=== PATIENT | female | born 1960 | race American Indian/Alaskan Native ===

== ENCOUNTER 2017-07-30 05:32 | Inpatient (IN) | payer BC, OTHER ==
[2017-07-30 06:30] LABS: Basophils % (Auto) 0.2 % (0.0-1.8); Eosinophils # (Auto) 0.1 K/mm3 (0.0-0.4); Eosinophils % (Auto) 0.4 % (0.0-4.3); Hematocrit 46.6 % (30.3-42.9); Lymphocytes # (Auto) 3.3 K/mm3 (1.2-5.4); Lymphocytes % (Auto) 27.5 % (13.4-35.0); Mean Corpuscular HGB Conc 34 % (30-34); Mean Corpuscular Hemoglobin 32 pg (28-32); Mean Corpuscular Volume 93 fl (79-97); Monocytes # (Auto) 1.4 K/mm3 (0.0-0.8); Monocytes % (Auto) 11.3 % (0.0-7.3); Platelet Count 362 K/mm3 (140-440); Red Blood Count 5.04 M/mm3 (3.65-5.03); Red Cell Distribution Width 13.3 % (13.2-15.2)
[2017-07-30 07:01] LABS: Albumin 4.5 g/dL (3.9-5); Calcium 9.3 mg/dL (8.4-10.2)
[2017-07-30] MEDS ORDERED: ZOFRAN IV ONE ×2 (07:05→10:05)
[2017-07-30] MEDS ORDERED: NACL 0.9% 1000 ML 1,000 ML IV ONE ×2 (07:05→08:14)
[2017-07-30] MEDS ORDERED: TORADOL IV ONE (07:20)
[2017-07-30] MEDS ORDERED: NACL ONE (07:45)
--- NOTE | 2017-07-30 08:07 | Emergency Department Report ---
ED Abdominal Pain HPI - General Chief Complaint: Abdominal Pain Stated Complaint: ABD PAIN Time Seen by Provider: 07/30/17 07:13 Source: patient Mode of arrival: Ambulatory Limitations: No Limitations - History of Present Illness Initial Comments: 57 yo female with a past medical history hypertension and previous hysterectomy presents to hospital with continued nausea and vomiting after eating a smoothie 3 days ago. Patient has intermittent lower abdominal cramps. Pain is mild to moderate, worse palpation, no specific alleviating factors. She denies fever, hematemesis, diarrhea, melena, hematochezia, recent travel, or known sick contacts. Patient's been trying to drink Gatorade with tolerating very little food intake. - Related Data Home Medications Medication Instructions Recorded Confirmed Last Taken Adalimumab [Humira Pen] Q2W 07/30/17 07/25/17 HCTZ 25 mg PO DAILY 07/30/17 07/30/17 Unknown Allergies Allergy/AdvReac Type Severity Reaction Status Date / Time No Known Allergies Allergy Verified 07/30/17 07:46 ED Review of Systems ROS: Stated complaint: ABD PAIN Other details as noted in HPI Comment: All other systems reviewed and negative Other: Constitutional: No fevers chills Eyes: No eye pain visual changes ENT: No ear pain or throat pain Neck: Denies pain Respiratory: Denies cough wheezing shortness of breath Cardiovascular: Denies chest pain, palpitations, syncope GI: As per HPI : Denies dysuria Musculoskeletal: Denies back pain, joint swelling Skin: Denies rash, lesions, erythema Neurologic: Denies headache, numbness, weakness Psychiatric: Denies suicidal ideation, hallucinations ED Past Medical Hx - Past Medical History Hx Hypertension: Yes - Surgical History Additional Surgical History: Hysterectomy - Social History Smoking Status: Current Every Day Smoker Substance Use Type: None - Medications Home Medications: Home Medications Medication Instructions Recorded Confirmed Last Taken Type Adalimumab [Humira Pen] Q2W 07/30/17 07/25/17 History HCTZ 25 mg PO DAILY 07/30/17 07/30/17 Unknown History ED Physical Exam - General Limitations: No Limitations - Other Other exam information: General: No limitations, patient is alert in no acute distress Head exam: Atraumatic, normocephalic Eyes exam: Normal appearance, pupils equal reactive to light, extraocular movements intact ENT: Moist mucous membrane, normal oropharynx Neck exam: Normal inspection, full range of motion, no meningismus nontender Respiratory exam: Clear to auscultation bilateral, no wheezes, rales, crackles Cardiovascular: Normal rate and rhythm, normal heart sounds Abdomen: Soft, nondistended, generalized lower abd tenderness. with normal bowel sounds, no rebound, or guarding Extremity: Full range of motion normal inspection no deformity Back: Normal Inspection, full range of motion, no tenderness Neurologic: Alert, oriented x3, cranial nerves intact, no motor or sensory deficit Psychiatric: normal affect, normal mood Skin: Warm, dry, intact ED Course Vital Signs 07/30/17 07/30/17 07/30/17 05:47 08:14 11:07 Temperature 98.9 F 97.8 F Pulse Rate 108 H 87 Respiratory 16 20 16 Rate Blood Pressure 124/89 Blood Pressure 143/82 [Left] O2 Sat by Pulse 98 99 Oximetry 07/30/17 11:59 Temperature Pulse Rate Respiratory 14 Rate Blood Pressure Blood Pressure [Left] O2 Sat by Pulse 99 Oximetry - Reevaluation(s) Reevaluation #1: 07/30/17 10:06 Morphine, Zofran, additional IV fluids ordered. Pending NG tube insertion - Consultations Consultation #1: 07/30/17 10:00 case d/w Dr Barker/surgery. Will evaluate pt for admission ED Medical Decision Making - Lab Data Result diagrams: 07/30/17 06:11 07/30/17 06:11 Lab Results 07/30/17 07/30/17 Range/Units 06:11 06:11 WBC 12.1 H (4.5-11.0) K/mm3 RBC 5.04 H (3.65-5.03) M/mm3 Hgb 16.0 H (10.1-14.3) gm/dl Hct 46.6 H (30.3-42.9) % MCV 93 (79-97) fl MCH 32 (28-32) pg MCHC 34 (30-34) % RDW 13.3 (13.2-15.2) % Plt Count 362 (140-440) K/mm3 Lymph % (Auto) 27.5 (13.4-35.0) % [place] % (Auto) 11.3 H (0.0-7.3) % Eos % (Auto) 0.4 (0.0-4.3) % Baso % (Auto) 0.2 (0.0-1.8) % Lymph # 3.3 (1.2-5.4) K/mm3 [place] # 1.4 H (0.0-0.8) K/mm3 Eos # 0.1 (0.0-0.4) K/mm3 Baso # 0.0 (0.0-0.1) K/mm3 Seg Neutrophils % 60.6 (40.0-70.0) % Seg Neutrophils # 7.3 (1.8-7.7) K/mm3 Sodium 131 L (137-145) mmol/L Potassium 3.6 (3.6-5.0) mmol/L Chloride 85.4 L (98-107) mmol/L Carbon Dioxide 26 (22-30) mmol/L Anion Gap 23 mmol/L BUN 37 H (7-17) mg/dL Creatinine 1.0 (0.7-1.2) mg/dL Estimated GFR 57 ml/min BUN/Creatinine Ratio 37 % Glucose 149 H (65-100) mg/dL Calcium 9.3 (8.4-10.2) mg/dL Total Bilirubin 0.60 (0.1-1.2) mg/dL AST 23 (5-40) units/L ALT 24 (7-56) units/L Alkaline Phosphatase 74 (35-129) units/L Total Protein 7.8 (6.3-8.2) g/dL Albumin 4.5 (3.9-5) g/dL Albumin/Globulin Ratio 1.4 % Lipase 20 (13-60) units/L - Radiology Data Radiology results: report reviewed Read by radiologist. CT abdomen and pelvis IV contrast: Incomplete small bowel obstruction. Obstruction probably from adhesions - Medical Decision Making Plan to admit patient to the hospital for partial SBO Surgery consultation Patient treated with Zofran, Toradol, and normal saline in the ED NG tube placed in the ED - Differential Diagnosis obstruction, gastritis, enteritis, food poisoning Critical Care Time: No Critical care attestation.: If time is entered above; I have spent that time in minutes in the direct care of this critically ill patient, excluding procedure time. ED Disposition Clinical Impression: Partial small bowel obstruction, Dehydration Disposition: OP ADMIT IP TO THIS HOSP Is pt being admited?: Yes Condition: Stable Time of Disposition: 10:00 (Dr Barker/ebony)
--- NOTE | 2017-07-30 09:33 | Cat Scan Report ---
CT scan of abdomen and pelvis with IV contrast: History: Nausea and vomiting. P.o. intolerance. Lower abdominal pain. Findings: Normal lung bases. No pleural pericardial effusion. Normal liver spleen pancreas gallbladder. Normal adrenals and kidney parenchyma and bladder. Minimal free intraperitoneal fluid. No intraperitoneal air. No evidence of adenopathy. Atherosclerotic abdominal aorta without aneurysm. Markedly distended loops of small bowel without wall thickening. Fluid levels within distended small bowel. No distention of colon. Colon appears collapsed. The site of obstruction appears to be a right lower quadrant there few loops of ileum appear collapsed. Impression: Incomplete small bowel obstruction. Obstruction appears to be probably from adhesions.
[2017-07-30] MEDS ORDERED: MORPHINE IV ONE (10:05)
[2017-07-30] MEDS ORDERED: LIDOCAINE VISCOUS 2% PO ONE (10:05)
--- NOTE | 2017-07-30 13:15 | Consultation ---
History of Present Illness Consult date: 07/30/17 Reason for consult: other (SBO) Requesting physician: NANCI HAMMOND Chief complaint: abdominal pain - History of present illness History of present illness: Patient is a 57-year-old fairly healthy female who presents with acute onset of abdominal pain, nausea, vomiting since this past Tuesday which would be about 4 days ago. Patient initially thought this was food poisoning. However, as things are not getting better, she decided to come in for evaluation. She was unable to get into her primary care's office. Denies any blood in her vomit. Had a very small bowel movement this morning. Has not passed gas since then. Since the nasogastric tube is been placed in the emergency room, her abdominal pain is much better. She now has only a pressure sensation in her abdomen. Nausea is also better. She's never had anything like this before. Denies any fevers or chills at home. Past History Past Medical History: hypertension, other (rheumatoid arthritis) Past Surgical History: hysterectomy (vaginal) Social history: smoking (1 pack per day), alcohol abuse (occasional), other ( works for [employer] in the [email or web address] denies: IV drug use Family history: no significant family history Medications and Allergies Allergies Allergy/AdvReac Type Severity Reaction Status Date / Time No Known Allergies Allergy Verified 07/30/17 07:46 Home Medications Medication Instructions Recorded Confirmed Last Taken Type Adalimumab [Humira Pen] Q2W 07/30/17 07/25/17 History HCTZ 25 mg PO DAILY 07/30/17 07/30/17 Unknown History Review of Systems - Constitutional no fever, no chills, no sweats, no night sweats - EENT Ears, nose, mouth and throat: other (dry mouth), no nasal congestion - Cardiovascular no chest pain, no rapid/irregular heart beat - Respiratory no cough, no shortness of breath - Gastrointestinal abdominal pain, nausea, vomiting, dyspepsia/bloating, other (feels pressure in the abdomen), no diarrhea, no constipation, no hematemesis, no coffee ground emesis, no BRBPR, no melena, no hematochezia - Genitourinary Genitourinary: no dysuria - Muskuloskeletal no low back pain - Integumentary no rash - Hematologic/Lymphatic easy bleeding Exam Vital Signs Temp Pulse Resp BP Pulse Ox 98.9 F 108 H 16 124/89 98 07/30/17 05:47 07/30/17 05:47 07/30/17 05:47 07/30/17 05:47 07/30/17 05:47 - General physical appearance Positive: well developed, well nourished, no distress, no pain - Eyes Positive: normal occular movement - ENT Positive: other (very dry oral mucosa) - Neck Positive: trachea midline - Respiratory Positive: normal expansion, normal respiratory effort, clear to auscultation - Cardiovascular Rhythm: regular - Abdomen Abdomen: Present: soft, bowel sounds hypoactive (no high-pitched bowel sounds), distended (mild). Absent: tender, guarding, rigid, surgical scars - Genitourinary Female Genitourinary: deferred - Integumentary no rash - Neurologic Neurologic: alert and oriented to time, place and person, motor strength and sensation are grossly intact - Psychiatric Psychiatric: appropriate mood/affect, intact judgment & insight, memory intact, cooperative - Additional Findings Able to sit up easily in bed Results - Labs 07/30/17 06:11 07/30/17 06:11 Abnormal lab results 07/30/17 07/30/17 Range/Units 06:11 06:11 WBC 12.1 H (4.5-11.0) K/mm3 RBC 5.04 H (3.65-5.03) M/mm3 Hgb 16.0 H (10.1-14.3) gm/dl Hct 46.6 H (30.3-42.9) % [place] % (Auto) 11.3 H (0.0-7.3) % [place] # 1.4 H (0.0-0.8) K/mm3 Sodium 131 L (137-145) mmol/L Chloride 85.4 L (98-107) mmol/L BUN 37 H (7-17) mg/dL Glucose 149 H (65-100) mg/dL Diabetes panel 07/30/17 Range/Units 06:11 Sodium 131 L (137-145) mmol/L Potassium 3.6 (3.6-5.0) mmol/L Chloride 85.4 L (98-107) mmol/L Carbon Dioxide 26 (22-30) mmol/L BUN 37 H (7-17) mg/dL Creatinine 1.0 (0.7-1.2) mg/dL Glucose 149 H (65-100) mg/dL Calcium 9.3 (8.4-10.2) mg/dL AST 23 (5-40) units/L ALT 24 (7-56) units/L Alkaline Phosphatase 74 (35-129) units/L Total Protein 7.8 (6.3-8.2) g/dL Albumin 4.5 (3.9-5) g/dL Calcium panel 07/30/17 Range/Units 06:11 Calcium 9.3 (8.4-10.2) mg/dL Albumin 4.5 (3.9-5) g/dL Pituitary panel 07/30/17 Range/Units 06:11 Sodium 131 L (137-145) mmol/L Potassium 3.6 (3.6-5.0) mmol/L Chloride 85.4 L (98-107) mmol/L Carbon Dioxide 26 (22-30) mmol/L BUN 37 H (7-17) mg/dL Creatinine 1.0 (0.7-1.2) mg/dL Glucose 149 H (65-100) mg/dL Calcium 9.3 (8.4-10.2) mg/dL Adrenal panel 07/30/17 Range/Units 06:11 Sodium 131 L (137-145) mmol/L Potassium 3.6 (3.6-5.0) mmol/L Chloride 85.4 L (98-107) mmol/L Carbon Dioxide 26 (22-30) mmol/L BUN 37 H (7-17) mg/dL Creatinine 1.0 (0.7-1.2) mg/dL Glucose 149 H (65-100) mg/dL Calcium 9.3 (8.4-10.2) mg/dL Total Bilirubin 0.60 (0.1-1.2) mg/dL AST 23 (5-40) units/L ALT 24 (7-56) units/L Alkaline Phosphatase 74 (35-129) units/L Total Protein 7.8 (6.3-8.2) g/dL Albumin 4.5 (3.9-5) g/dL - Imaging CT scan - abdomen: report reviewed, image reviewed Assessment and Plan - Patient Problems (1) SBO (small bowel obstruction) Onset Date: ~07/26/17 Current Visit: Yes Status: Acute Plan to address problem: Patient appears clinically stable and improved by report since NG tube has been placed. Abdomen is completely benign. Vitals are normal. We'll start with conservative management of the bowel obstruction. On CT, I believe there is a segment of distal small bowel that is decompressed. It is difficult to see the exact transition point. However, as she is feeling better and stable, we will resuscitate her and follow her for the next 24 to 48 hours to see if she is able to resolve this without surgery. I did explain to her that if her status should change, that if she becomes ill, then we may have to consider surgery. She understood and accepted that. Time=45min (2) Dehydration Current Visit: Yes Status: Acute Plan to address problem: Patient is very dehydrated by clinical exam and by labs. I will order fluid boluses as well as a continuous IV rate. Labs will be repeated in the morning.
[2017-07-30] MEDS ORDERED: MORPHINE IV PRN (13:28)
[2017-07-30] MEDS: NS/KCL 20MEQ 20 MEQ/1,000 ML BAG IV SCH ×2 (14:02→21:01)
[2017-07-30] MEDS ORDERED: NACL 0.9% 1000 ML 2,000 ML IV ONE (14:29)
[2017-07-30] MEDS: MORPHINE IV PRN ×2 (17:15→23:32)
[2017-07-30] MEDS: ZOFRAN IV PRN ×2 (18:56→23:32)
[2017-07-31] MEDS: NS/KCL 20MEQ 20 MEQ/1,000 ML BAG IV SCH ×3 (03:03→18:53)
[2017-07-31 06:07] LABS: Bilirubin,Urine NEG (Negative); Blood,Urine SM (Negative); Color,Urine Yellow (Yellow); Hyaline Casts,Urine 2 /LPF; Mucus,Urine 2+ /HPF; Urobilinogen,Urine < 2.0 mg/dL (<2.0)
[2017-07-31 07:52] LABS: Basophils % (Auto) 0.2 % (0.0-1.8); Eosinophils % (Auto) 0.1 % (0.0-4.3); Hematocrit 39.6 % (30.3-42.9); Hemoglobin 13.7 gm/dl (10.1-14.3); Lymphocytes # (Auto) 1.3 K/mm3 (1.2-5.4); Lymphocytes % (Auto) 14.4 % (13.4-35.0); Mean Corpuscular HGB Conc 34 % (30-34); Mean Corpuscular Hemoglobin 32 pg (28-32); Mean Corpuscular Volume 93 fl (79-97); Monocytes # (Auto) 0.9 K/mm3 (0.0-0.8); Monocytes % (Auto) 9.6 % (0.0-7.3); Platelet Count 299 K/mm3 (140-440); Red Blood Count 4.26 M/mm3 (3.65-5.03); Red Cell Distribution Width 12.9 % (13.2-15.2)
[2017-07-31] MEDS: MORPHINE IV PRN ×3 (08:31→21:18)
[2017-07-31 08:44] LABS: BUN/Creatinine Ratio 40; Blood Urea Nitrogen 24 mg/dL (7-17); Calcium 8.5 mg/dL (8.4-10.2); Hemolysis Index 2
[2017-07-31] MEDS: ZOFRAN IV PRN ×2 (11:00→21:17)
[2017-07-31] MEDS ORDERED: CHLORASEPTIC MM PRN (15:57)
--- NOTE | 2017-07-31 16:03 | Progress Note ---
Assessment and Plan 57 yo F with SBO, dehydration Plan: 1. NGT to low CONTINUOUS suction, output decreased since yesterday 2. strict I/Os 3. BUN improving - continue IVF 4. serial abd exams 5. PRN pain and nausea control 6. repeat BMP, mg, phos in am 7. continue NPO Subjective Date of service: 07/31/17 Narrative: Pt seen and examined. Feels ok today. +nausea and some vomiting around NGT overnight. Afebrile. No flatus or BM yet. Abd pain is improved. Objective Vital Signs - 12hr 07/31/17 07/31/17 06:41 07:48 Temperature 99.0 F Pulse Rate 83 Respiratory 16 Rate Respiratory 18 Rate [Abdomen] Blood Pressure 133/70 O2 Sat by Pulse 89 Oximetry - General physical appearance Narrative Exam: Gen: AAOx3. NAD ENT: no scleral icterus or conjunctival pallor. NGT appears to be out too far and is not functioning well - pushed in about 5 cm and better return of bilious fluid. Taped in place to nose. CV: S1, S2+ Resp: even and unlabored Abd: soft, distended, NT. hypoactive bowel sounds. ext: no c/c/e NGT: 500cc/12hr - Labs 07/31/17 07:15 07/31/17 07:15 Diabetes panel 07/31/17 Range/Units 07:15 Sodium 141 D (137-145) mmol/L Potassium 4.0 (3.6-5.0) mmol/L Chloride 95.9 L (98-107) mmol/L Carbon Dioxide 32 H (22-30) mmol/L BUN 24 H (7-17) mg/dL Creatinine 0.6 L (0.7-1.2) mg/dL Glucose 104 H (65-100) mg/dL Calcium 8.5 (8.4-10.2) mg/dL Calcium panel 07/31/17 Range/Units 07:15 Calcium 8.5 (8.4-10.2) mg/dL Pituitary panel 07/31/17 Range/Units 07:15 Sodium 141 D (137-145) mmol/L Potassium 4.0 (3.6-5.0) mmol/L Chloride 95.9 L (98-107) mmol/L Carbon Dioxide 32 H (22-30) mmol/L BUN 24 H (7-17) mg/dL Creatinine 0.6 L (0.7-1.2) mg/dL Glucose 104 H (65-100) mg/dL Calcium 8.5 (8.4-10.2) mg/dL Adrenal panel 07/31/17 Range/Units 07:15 Sodium 141 D (137-145) mmol/L Potassium 4.0 (3.6-5.0) mmol/L Chloride 95.9 L (98-107) mmol/L Carbon Dioxide 32 H (22-30) mmol/L BUN 24 H (7-17) mg/dL Creatinine 0.6 L (0.7-1.2) mg/dL Glucose 104 H (65-100) mg/dL Calcium 8.5 (8.4-10.2) mg/dL
[2017-08-01] MEDS: NS/KCL 20MEQ 20 MEQ/1,000 ML BAG IV SCH ×3 (01:38→18:43)
[2017-08-01 06:28] LABS: BUN/Creatinine Ratio 40; Blood Urea Nitrogen 24 mg/dL (7-17); Calcium 8.3 mg/dL (8.4-10.2); Hemolysis Index 4
--- NOTE | 2017-08-01 12:37 | Progress Note ---
Assessment and Plan 57 yo F with SBO, dehydration Plan: 1. NGT to low CONTINUOUS suction 2. strict I/Os 3. continue IVF 4. serial abd exams 5. PRN pain and nausea control 6. repeat BMP, mg, phos in am 7. continue NPO 8. await bowel function Subjective Date of service: 08/01/17 Narrative: Pt seen and examined. No complaints. Abd pain and nausea resolved. No emesis. Afebrile. She ambulated in the hallways yesterday with NGT clamped. No flatus or BM yet. Objective Vital Signs - 12hr 08/01/17 07:20 Temperature 97.4 F L Pulse Rate 79 Respiratory 20 Rate Blood Pressure 146/80 O2 Sat by Pulse 90 Oximetry - General physical appearance Narrative Exam: Gen: AAOx3. NAD ENT: NGT in place with bilious drainage CV: S1, S2+ Resp: No audible wheezes Abd: soft, NT, mildly distended - improved. Hypoactive bowel sounds. Ext: no c/c/e NGT: 1L/24 hours - Labs 07/31/17 07:15 08/01/17 05:38 Diabetes panel 08/01/17 Range/Units 05:38 Sodium 143 (137-145) mmol/L Potassium 3.9 (3.6-5.0) mmol/L Chloride 100.9 (98-107) mmol/L Carbon Dioxide 28 (22-30) mmol/L BUN 24 H (7-17) mg/dL Creatinine 0.6 L (0.7-1.2) mg/dL Glucose 82 (65-100) mg/dL Calcium 8.3 L (8.4-10.2) mg/dL Calcium panel 08/01/17 Range/Units 05:38 Calcium 8.3 L (8.4-10.2) mg/dL Phosphorus 2.60 (2.5-4.5) mg/dL Pituitary panel 08/01/17 Range/Units 05:38 Sodium 143 (137-145) mmol/L Potassium 3.9 (3.6-5.0) mmol/L Chloride 100.9 (98-107) mmol/L Carbon Dioxide 28 (22-30) mmol/L BUN 24 H (7-17) mg/dL Creatinine 0.6 L (0.7-1.2) mg/dL Glucose 82 (65-100) mg/dL Calcium 8.3 L (8.4-10.2) mg/dL Adrenal panel 08/01/17 Range/Units 05:38 Sodium 143 (137-145) mmol/L Potassium 3.9 (3.6-5.0) mmol/L Chloride 100.9 (98-107) mmol/L Carbon Dioxide 28 (22-30) mmol/L BUN 24 H (7-17) mg/dL Creatinine 0.6 L (0.7-1.2) mg/dL Glucose 82 (65-100) mg/dL Calcium 8.3 L (8.4-10.2) mg/dL
[2017-08-01] MEDS: MORPHINE IV PRN (20:45)
[2017-08-01] MEDS: LOVENOX SUB-Q SCH (21:54)
[2017-08-02] MEDS: NS/KCL 20MEQ 20 MEQ/1,000 ML BAG IV SCH (01:10)
[2017-08-02 08:01] LABS: BUN/Creatinine Ratio 48; Blood Urea Nitrogen 24 mg/dL (7-17); Calcium 8.7 mg/dL (8.4-10.2); Hemolysis Index 5
--- NOTE | 2017-08-02 09:51 | Progress Note ---
Assessment and Plan 57 yo F with 1. SBO 2. hyperchloremia 3. hypernatremia Patient continues to improve clinically. NGT output remains high. Plan: 1. NGT to low CONTINUOUS suction 2. strict I/Os 3. change IVF to D5 1/2NS +20KCL 4. serial abd exams 5. PRN pain and nausea control 6. repeat BMP, mg, phos in am 7. continue NPO 8. await bowel function 9. obstruction series today 10. GI and DVT ppx Subjective Date of service: 08/02/17 Narrative: Pt seen and examined. No overnight events or acute complaints. No n/v, f/c, or abd pain. No flatus or BM. Objective Vital Signs - 12hr 08/02/17 08:22 Temperature 97.6 F Pulse Rate 78 Respiratory 20 Rate Blood Pressure 152/76 O2 Sat by Pulse 94 Oximetry - General physical appearance Narrative Exam: Gen: AAOx3. NAD ENT: NGT in place with bilious output CV: S1, S2+ Resp: even and unlabored Abd: soft, mildly distended, NT. +bowel sounds in all 4 quadrants Ext: no c/c/e NGT: 1500cc/24h - Labs 07/31/17 07:15 08/02/17 05:48 Diabetes panel 08/02/17 Range/Units 05:48 Sodium 149 H (137-145) mmol/L Potassium 3.6 (3.6-5.0) mmol/L Chloride 107.7 H (98-107) mmol/L Carbon Dioxide 22 (22-30) mmol/L BUN 24 H (7-17) mg/dL Creatinine 0.5 L (0.7-1.2) mg/dL Glucose 67 (65-100) mg/dL Calcium 8.7 (8.4-10.2) mg/dL Calcium panel 08/02/17 Range/Units 05:48 Calcium 8.7 (8.4-10.2) mg/dL Phosphorus 3.60 D (2.5-4.5) mg/dL Pituitary panel 08/02/17 Range/Units 05:48 Sodium 149 H (137-145) mmol/L Potassium 3.6 (3.6-5.0) mmol/L Chloride 107.7 H (98-107) mmol/L Carbon Dioxide 22 (22-30) mmol/L BUN 24 H (7-17) mg/dL Creatinine 0.5 L (0.7-1.2) mg/dL Glucose 67 (65-100) mg/dL Calcium 8.7 (8.4-10.2) mg/dL Adrenal panel 08/02/17 Range/Units 05:48 Sodium 149 H (137-145) mmol/L Potassium 3.6 (3.6-5.0) mmol/L Chloride 107.7 H (98-107) mmol/L Carbon Dioxide 22 (22-30) mmol/L BUN 24 H (7-17) mg/dL Creatinine 0.5 L (0.7-1.2) mg/dL Glucose 67 (65-100) mg/dL Calcium 8.7 (8.4-10.2) mg/dL
[2017-08-02] MEDS: D5W/0.45% NACL/KCL 20 MEQ 20 MEQ/1,000 ML BAG IV SCH ×2 (10:03→21:20)
--- NOTE | 2017-08-02 10:50 | XRay Report ---
ABDOMINAL SERIES: History: Small bowel obstruction. Compared to the CT abdomen and pelvis dated 08/26/17. A nasogastric tube has been inserted. Multiple loops of dilated small bowel with large air-fluid levels is again seen. Very little, if any, gas in the colon is detected on x-ray. No evidence for free air or pathologic calcifications. Single view of the chest is unremarkable. IMPRESSION: Moderate to high-grade distal small bowel obstruction is suspected which is grossly unchanged since the CT performed 3 days ago.
[2017-08-02] MEDS: PROTONIX IV SCH (13:09)
[2017-08-02] MEDS: LOVENOX SUB-Q SCH (21:20)
[2017-08-02] MEDS: MORPHINE IV PRN (22:08)
[2017-08-03] MEDS: D5W/0.45% NACL/KCL 20 MEQ 20 MEQ/1,000 ML BAG IV SCH (05:19)
[2017-08-03 06:55] LABS: BUN/Creatinine Ratio 38; Blood Urea Nitrogen 15 mg/dL (7-17); Calcium 8.4 mg/dL (8.4-10.2); Hemolysis Index 2
[2017-08-03] MEDS: PROTONIX IV SCH (09:31)
--- NOTE | 2017-08-03 09:39 | XRay Report ---
Abdominal series: SBO A nasogastric tube is present. Multiple dilated small bowel loops noted in the central abdomen however there are no fluid layers. No colonic gas noted. No free air. The abdominal gas pattern is not substantially changed since prior study of August 02. Mild bibasilar atelectasis is noted but the lungs otherwise appear clear. Impression: The findings are consistent with SBO unchanged from prior exam.
--- NOTE | 2017-08-03 09:51 | Progress Note ---
Assessment and Plan 57 yo F with SBO The patient remains distended, without bowel function, with high NGT output, and no improvement on imaging despite being treated conservatively for the past 4 days. Plan: 1. I discussed surgery with the patient to address small bowel obstruction yesterday and again this am. She understands that she is not improving with NGT and bowel rest. We discussed continuing conservative management vs surgery and the patient is agreeable to proceed to surgery. All risks of Diagnostic laparoscopy, possible open surgery were discussed and consent signed. Will proceed to OR today. 2. NPO 3. IVF 4. Replace K 5. OOB/ambulate 6. NGT to LCWS 7. DVT/GI ppx Subjective Date of service: 08/03/17 Narrative: Pt seen and examined. C/O abd bloating but no pain. No n/v, f/c. No flatus or BM. Objective Vital Signs - 12hr 08/02/17 08/03/17 08/03/17 23:20 00:49 01:10 Temperature 98.6 F 98.8 F Pulse Rate 96 H 78 Respiratory 16 18 Rate Blood Pressure 157/73 Blood Pressure 170/84 142/73 [Left] O2 Sat by Pulse 90 Oximetry 08/03/17 08/03/17 04:50 08:18 Temperature 99.2 F Pulse Rate 76 69 Respiratory 20 Rate Blood Pressure 158/87 Blood Pressure [Left] O2 Sat by Pulse 94 95 Oximetry - General physical appearance Narrative Exam: Gen: AAOx3. NAD ENT: NGT in place with bilious drainage CV: s1, S2+ Resp: even and unlabored Abd: soft, distended, NT. no r/r/g Ext: no c/c/e NGT: 1000cc/24h bilious - Labs 07/31/17 07:15 08/03/17 06:17 Diabetes panel 08/03/17 Range/Units 06:17 Sodium 143 (137-145) mmol/L Potassium 3.5 L (3.6-5.0) mmol/L Chloride 103.3 (98-107) mmol/L Carbon Dioxide 28 (22-30) mmol/L BUN 15 (7-17) mg/dL Creatinine 0.4 L (0.7-1.2) mg/dL Glucose 128 H (65-100) mg/dL Calcium 8.4 (8.4-10.2) mg/dL Calcium panel 08/03/17 Range/Units 06:17 Calcium 8.4 (8.4-10.2) mg/dL Phosphorus 2.50 D (2.5-4.5) mg/dL Pituitary panel 08/03/17 Range/Units 06:17 Sodium 143 (137-145) mmol/L Potassium 3.5 L (3.6-5.0) mmol/L Chloride 103.3 (98-107) mmol/L Carbon Dioxide 28 (22-30) mmol/L BUN 15 (7-17) mg/dL Creatinine 0.4 L (0.7-1.2) mg/dL Glucose 128 H (65-100) mg/dL Calcium 8.4 (8.4-10.2) mg/dL Adrenal panel 08/03/17 Range/Units 06:17 Sodium 143 (137-145) mmol/L Potassium 3.5 L (3.6-5.0) mmol/L Chloride 103.3 (98-107) mmol/L Carbon Dioxide 28 (22-30) mmol/L BUN 15 (7-17) mg/dL Creatinine 0.4 L (0.7-1.2) mg/dL Glucose 128 H (65-100) mg/dL Calcium 8.4 (8.4-10.2) mg/dL
[2017-08-03] MEDS ORDERED: KCL 10MEQ/100ML 10 MEQ/100 ML BAG IV SCH (10:00)
[2017-08-03] MEDS ORDERED: ANCEF/STERILE WATER 2 GM/20 ML IV NR (10:18)
[2017-08-03] MEDS ORDERED: FLAGYL 500 MG/100 ML 500 MG/100 ML BAG IV NR (10:19)
[2017-08-03] MEDS ORDERED: LACTATED RINGERS 1,000 ML IV SCH (10:22)
[2017-08-03] MEDS ORDERED: SUBLIMAZE IV PRN (10:24)
[2017-08-03] MEDS ORDERED: DILAUDID IV PRN ×2 (10:24→15:06)
--- NOTE | 2017-08-03 10:25 | Anesthesia Day of Surgery ---
Anesthesia Day of Surgery - Day of Surgery Patient Examined: Yes Patient H&P Reviewed: Yes Patient is NPO: Yes
[2017-08-03] MEDS ORDERED: MARCAINE-EPI 0.5%-1:200,000 INFILTRATI ONE ×2 (10:26→11:11)
[2017-08-03] MEDS ORDERED: XYLOCAINE 1% 20 mL ONE (10:26)
--- NOTE | 2017-08-03 10:27 | Anesthesia Consultation ---
Anesthesia Consult and Med Hx Date of service: 08/03/17 - Airway Anesthetic Teeth Evaluation: Good ROM Head & Neck: Adequate Mental/Hyoid Distance: Adequate Mallampati Class: Class II Intubation Access Assessment: Probably Good - Pulmonary Exam CTA: Yes - Cardiac Exam Cardiac Exam: RRR - Pre-Operative Health Status ASA Pre-Surgery Classification: ASA3, Emergency Proposed Anesthetic Plan: General - Pulmonary Hx Smoking: Yes Hx Asthma: No COPD: No Hx Pneumonia: No - Cardiovascular System Hx Hypertension: Yes - Central Nervous System Hx Neuromuscular Disorder: Yes (RA in hands/feet/denies in neck) - Endocrine Hx End Stage Renal Disease: No - Additional Comments Anesthesia Medical History Comments: r/o SBO c/o distension has NG
[2017-08-03] MEDS ORDERED: XYLOCAINE MPF 2% ONE (10:35)
[2017-08-03] MEDS ORDERED: VERSED ONE (10:35)
[2017-08-03] MEDS ORDERED: ZEMURON IV ONE (10:36)
[2017-08-03] MEDS ORDERED: QUELICIN ONE (10:36)
[2017-08-03] MEDS ORDERED: SUBLIMAZE ONE (10:36)
[2017-08-03] MEDS ORDERED: DIPRIVAN 10 MG/ML IV ONE (10:36)
[2017-08-03] MEDS ORDERED: ZOFRAN ONE (10:39)
[2017-08-03] MEDS ORDERED: NACL 0.9% IR ONE ×5 (11:00→11:11)
[2017-08-03] MEDS ORDERED: NACL 0.9% 1000 ML 1,000 ML IV SCH (11:00)
[2017-08-03] MEDS ORDERED: ePHEDrine SULFATE ONE (11:33)
[2017-08-03] MEDS ORDERED: KCL 40 MEQ in NACL 0.9% 500 ML 500 ML IV ONE (12:00)
[2017-08-03] MEDS ORDERED: NEOSTIGMINE ONE (14:42)
[2017-08-03] MEDS ORDERED: ROBINUL ONE ×2 (14:42)
--- NOTE | 2017-08-03 15:27 | Operative Report ---
Operative Report Operative Report: Date of operation: 08/03/17 Preoperative diagnosis: Small bowel obstruction postOperative diagnoses: Small bowel obstruction Procedure performed: Diagnostic laparoscopy, lysis of adhesions Surgeon: Sierra Esquivel DO Anesthesia: Gen. endotracheal anesthesia Findings: Dense adhesion from the loop of bowel to the anterior abdominal wall at the location of the patient's previous surgical site. A dense adhesion from a separate loop of small bowel in the pelvis Specimen: None Estimated blood loss: <15cc Urine output: 200cc IVF: 1600cc Complications: None Disposition: Stable to PACU HPI an indication: 57-year-old female who presented to the hospital with complaints of abdominal pain, nausea, vomiting. She was dehydrated. On CT scan , she was found to have a small bowel obstruction and was treated conservatively with an NG tube, bowel rest, IV fluids. Unfortunately, the patient continued to have high NG tube output, persistent small bowel obstruction on repeat imaging, and no bowel function on hospital day 5. All risks and benefits of surgical intervention were discussed with the patient as well as alternatives. Because the patient was not improving with conservative management, it was recommended that we move to surgical intervention. The patient was agreeable and consent was signed for a diagnostic laparoscopy, possible expiratory laparotomy. Procedure in detail: The patient was identified in the preoperative area and taken back to the operating room, placed on the operating room table in supine position. After anesthesia was induced, a Connor catheter was sterilely placed by the circulating nurse. The abdomen was prepped and draped in usual sterile fashion and timeout was performed. Local anesthetic was infiltrated into all of the skin incision sites. Using an 11 blade a supraumbilical incision was made and through this a Veress needle was used to insufflate the abdomen. The position of the veress needle was confirmed with the saline drop test and the abdomen was then insufflated to 15 mmHg. The veress needle was then removed and a 5 mm trocar placed using Optiview trocar. The abdomen was then inspected and there was no underlying injury to any of the abdominal contents. There were adhesions from the omentum to the anterior abdominal wall from the umbilicus towards the pelvis. An additional 5 mm left lateral abdominal port and 5 mm right lateral abdominal port was placed under direct visualization. There was distended small bowel visualized in the upper and mid abdomen. No free fluid in the abdomen. Patient was placed in steep Trendelenburg and dilated bowel displaced to the upper abdomen. The adhesions were taken down meticulously using a combination of EndoShears and Harmonic scalpel. Once the omentum was freed from the anterior abdominal wall, an additional 5 mm right lower quadrant trocar was placed under direct visualization. The omentum was inspected and hemostasis ensured. A loop of small bowel was densely adhered to the anterior abdominal wall at the location of the patient's previous hysterectomy scar and appeared twisted. This was taken down with great care using a combination of blunt and sharp dissection. The bowel proximal to this was dilated and distal to this was largely decompressed. There was a small serosal tear upon inspection of the bowel but no spillage of bowel contents. Tisseel was applied to the bowel wall. I then turned my attention to running the bowel. The terminal ileum was identified and the small bowel was ran proximally. There was another dense adhesion from the small bowel to the pelvis which appear to be causing a partial kink in the bowel. The bowel was mildly dilated proximal to this and completely decompressed distal to this. This adhesion was taken down sharply with great care. The rest of the bowel was then ran proximally until only dilated bowel was encountered. The lysis of adhesions took greater than 1.5 hours. The rest of the abdomen was inspected and irrigated with saline solution until the irrigant returned clear. Hemostasis was meticulously achieved. Peristalsis was visualized in the distal small bowel. The patient was then placed back into neutral position, the abdomen desufflated, and all ports removed. Skin incisions were closed with 4-0 Monocryl subcuticular stitches and skin glue. At the end case all sponge, instrument, sharp counts were correct 2. The patient was awoken from anesthesia, extubated, taken to PACU in stable condition. The Connor catheter was removed at the end of the case.
[2017-08-03] MEDS: MORPHINE IV PRN ×2 (15:30→20:11)
[2017-08-03] MEDS: LOVENOX SUB-Q SCH (22:25)
[2017-08-04] MEDS: APRESOLINE IV PRN ×2 (00:45→18:45)
[2017-08-04] MEDS: MORPHINE IV PRN (05:30)
[2017-08-04 06:53] LABS: Hematocrit 33.7 % (30.3-42.9); Hemoglobin 11.6 gm/dl (10.1-14.3); Mean Corpuscular HGB Conc 34 % (30-34); Mean Corpuscular Hemoglobin 32 pg (28-32); Mean Corpuscular Volume 94 fl (79-97); Platelet Count 307 K/mm3 (140-440); Red Blood Count 3.59 M/mm3 (3.65-5.03); Red Cell Distribution Width 12.9 % (13.2-15.2)
[2017-08-04 07:07] LABS: BUN/Creatinine Ratio 27; Blood Urea Nitrogen 8 mg/dL (7-17); Calcium 7.2 mg/dL (8.4-10.2); Hemolysis Index 6
[2017-08-04] MEDS: PROTONIX IV SCH (09:31)
[2017-08-04] MEDS: LOVENOX SUB-Q SCH (09:32)
[2017-08-04] MEDS ORDERED: MAGNESIUM SULFATE 2GM/50ML 2 GM/50 ML BAG IV ONE (10:00)
[2017-08-04] MEDS ORDERED: KPHOS 15 MMOL in NACL 0.9% 250ML 250 ML IV ONE (11:00)
--- NOTE | 2017-08-04 11:09 | Progress Note ---
Assessment and Plan 57 yo F s/p Diagnostic laparoscopy, Lysis of adhesions POD 1 1. NPO 2. IVF - change to maintenance 3. PRN Pain control 4. OOB/ambulate 5. encouraged incentive spirometry 6. NGT to LCWS 7. strict I/Os 8. DVT and GI ppx 9. Await bowel function Subjective Date of service: 08/04/17 Narrative: Pt seen and examined. c/o soreness near incisions. No n/v, f/c. She has not had flatus or BM. No overnight events. Patient is ambulating in the halls. Objective Vital Signs - 12hr 08/04/17 08/04/17 08/04/17 00:18 00:45 04:16 Temperature 98.7 F 98.8 F Pulse Rate 68 96 H 86 Respiratory 20 18 Rate Blood Pressure 174/94 174/96 157/86 O2 Sat by Pulse 97 97 Oximetry 08/04/17 08:16 Temperature 98.3 F Pulse Rate 76 Respiratory 20 Rate Blood Pressure 154/79 O2 Sat by Pulse 96 Oximetry - General physical appearance Narrative Exam: Gen: AAOx3. NAD ENT: NGT with clear brown drainage CV: s1, S2+ Resp: No audible wheezes Abd: soft, Mildly distended but improved, NT. incisions c/d/i Ext: no c/c/e NGT: 100cc/12h (recorded), 400cc in canister this am - Labs 08/04/17 06:15 08/04/17 06:15 Diabetes panel 08/04/17 Range/Units 06:15 Sodium 138 (137-145) mmol/L Potassium 4.0 (3.6-5.0) mmol/L Chloride 99.6 (98-107) mmol/L Carbon Dioxide 20 L D (22-30) mmol/L BUN 8 (7-17) mg/dL Creatinine 0.3 L (0.7-1.2) mg/dL Glucose 71 (65-100) mg/dL Calcium 7.2 L (8.4-10.2) mg/dL Calcium panel 08/04/17 Range/Units 06:15 Calcium 7.2 L (8.4-10.2) mg/dL Phosphorus 2.30 L (2.5-4.5) mg/dL Pituitary panel 08/04/17 Range/Units 06:15 Sodium 138 (137-145) mmol/L Potassium 4.0 (3.6-5.0) mmol/L Chloride 99.6 (98-107) mmol/L Carbon Dioxide 20 L D (22-30) mmol/L BUN 8 (7-17) mg/dL Creatinine 0.3 L (0.7-1.2) mg/dL Glucose 71 (65-100) mg/dL Calcium 7.2 L (8.4-10.2) mg/dL Adrenal panel 08/04/17 Range/Units 06:15 Sodium 138 (137-145) mmol/L Potassium 4.0 (3.6-5.0) mmol/L Chloride 99.6 (98-107) mmol/L Carbon Dioxide 20 L D (22-30) mmol/L BUN 8 (7-17) mg/dL Creatinine 0.3 L (0.7-1.2) mg/dL Glucose 71 (65-100) mg/dL Calcium 7.2 L (8.4-10.2) mg/dL
[2017-08-05] MEDS: D5W/0.45% NACL/KCL 20 MEQ 20 MEQ/1,000 ML BAG IV SCH ×2 (07:32→14:06)
[2017-08-05 08:16] LABS: BUN/Creatinine Ratio 20; Blood Urea Nitrogen 10 mg/dL (7-17); Calcium 7.6 mg/dL (8.4-10.2); Hemolysis Index 25
[2017-08-05] MEDS: PROTONIX IV SCH (09:13)
[2017-08-05] MEDS: LOVENOX SUB-Q SCH (09:13)
--- NOTE | 2017-08-05 10:47 | Progress Note ---
Assessment and Plan 57-year-old female status post diagnostic laparoscopy, lysis of adhesions, postop day 2 Plan: 1. NPO 2. IVF 3. NGT clamp trial until 1330 4. await bowel function 5. OOB/ambulate/IS 6. DVT and GI ppx 7. PRN pain control Subjective Date of service: 08/05/17 Narrative: Patient seen and examined at bedside. She has no acute complaints. No abdominal pain, fevers, chills. No nausea or vomiting. She states that she passed a large amount of flatus several times since yesterday. No bowel movements. Objective Vital Signs - 12hr 08/05/17 07:39 Temperature 98.5 F Pulse Rate 85 Respiratory 20 Rate Blood Pressure 165/87 O2 Sat by Pulse 93 Oximetry - General physical appearance Narrative Exam: General: Awake, alert, oriented 3. No apparent distress ENT: NG tube light Brown drainage CV: S1, S2 present Respiratory: Even and unlabored Abdomen: Soft, distended, nontender. Incisions are clean, dry, intact. There are positive bowel sounds. Extremities: No clubbing, cyanosis, edema NG tube: 500-600 mL over 24 hours - Labs 08/04/17 06:15 08/05/17 06:48 Diabetes panel 08/05/17 Range/Units 06:48 Sodium 138 (137-145) mmol/L Potassium 5.0 D (3.6-5.0) mmol/L Chloride 101.0 (98-107) mmol/L Carbon Dioxide 20 L (22-30) mmol/L BUN 10 (7-17) mg/dL Creatinine 0.5 L D (0.7-1.2) mg/dL Glucose 386 H (65-100) mg/dL Calcium 7.6 L (8.4-10.2) mg/dL Calcium panel 08/05/17 Range/Units 06:48 Calcium 7.6 L (8.4-10.2) mg/dL Phosphorus 2.90 D (2.5-4.5) mg/dL Pituitary panel 08/05/17 Range/Units 06:48 Sodium 138 (137-145) mmol/L Potassium 5.0 D (3.6-5.0) mmol/L Chloride 101.0 (98-107) mmol/L Carbon Dioxide 20 L (22-30) mmol/L BUN 10 (7-17) mg/dL Creatinine 0.5 L D (0.7-1.2) mg/dL Glucose 386 H (65-100) mg/dL Calcium 7.6 L (8.4-10.2) mg/dL Adrenal panel 08/05/17 Range/Units 06:48 Sodium 138 (137-145) mmol/L Potassium 5.0 D (3.6-5.0) mmol/L Chloride 101.0 (98-107) mmol/L Carbon Dioxide 20 L (22-30) mmol/L BUN 10 (7-17) mg/dL Creatinine 0.5 L D (0.7-1.2) mg/dL Glucose 386 H (65-100) mg/dL Calcium 7.6 L (8.4-10.2) mg/dL
--- NOTE | 2017-08-05 14:47 | Event Note ---
Date: 08/05/17 Pt seen and examined. 4 hours into NGT clamp trial and patient feels well. She denies abd pain, nausea, vomiting. She is passing flatus. No BM. NGT hooked to suction and 25 cc of clear output. However, the patient is still distended and tympanic on physical exam. I recommended keeping the NGT for another day to record output and for distension. The patient understands and is agreeable. Plan communicated to nursing. Will follow up in am.
[2017-08-06] MEDS: D5W/0.45% NACL/KCL 20 MEQ 20 MEQ/1,000 ML BAG IV SCH ×2 (06:29→15:04)
[2017-08-06 07:14] LABS: BUN/Creatinine Ratio 14; Blood Urea Nitrogen 7 mg/dL (7-17); Calcium 8.3 mg/dL (8.4-10.2); Hemolysis Index 5
[2017-08-06] MEDS: PROTONIX IV SCH (10:24)
[2017-08-06] MEDS: LOVENOX SUB-Q SCH (10:24)
--- NOTE | 2017-08-06 11:11 | Progress Note ---
Assessment and Plan 57-year-old female status post diagnostic laparoscopy, lysis of adhesions, postop day 3 Plan: 1. starts sips of clears and ice chips 2. IVF - decrease rate 3. dc NGT 4. await bowel function 5. OOB/ambulate/IS 6. DVT and GI ppx 7. PRN pain control Subjective Date of service: 08/06/17 Narrative: Pt seen and examined. No overnight events. No f/c, cp, sob. + flatus, no BM. Objective Vital Signs - 12hr 08/06/17 07:50 Temperature 98.6 F Pulse Rate 76 Respiratory 18 Rate Blood Pressure 154/84 O2 Sat by Pulse 91 Oximetry - General physical appearance Narrative Exam: Gen: AAOx3. NAD ENT: NGT with clear brown drainage CV: S1, S2+ resp: no audible wheezes Abd: soft, NT, mildly distended, hypoactive bowel sounds Ext: no c/c/e NGT: 400cc/24 hr - Labs 08/04/17 06:15 08/06/17 06:21 Diabetes panel 08/06/17 Range/Units 06:21 Sodium 140 (137-145) mmol/L Potassium 3.3 L D (3.6-5.0) mmol/L Chloride 98.9 (98-107) mmol/L Carbon Dioxide 25 (22-30) mmol/L BUN 7 (7-17) mg/dL Creatinine 0.5 L (0.7-1.2) mg/dL Glucose 96 (65-100) mg/dL Calcium 8.3 L (8.4-10.2) mg/dL Calcium panel 08/06/17 Range/Units 06:21 Calcium 8.3 L (8.4-10.2) mg/dL Pituitary panel 08/06/17 Range/Units 06:21 Sodium 140 (137-145) mmol/L Potassium 3.3 L D (3.6-5.0) mmol/L Chloride 98.9 (98-107) mmol/L Carbon Dioxide 25 (22-30) mmol/L BUN 7 (7-17) mg/dL Creatinine 0.5 L (0.7-1.2) mg/dL Glucose 96 (65-100) mg/dL Calcium 8.3 L (8.4-10.2) mg/dL Adrenal panel 08/06/17 Range/Units 06:21 Sodium 140 (137-145) mmol/L Potassium 3.3 L D (3.6-5.0) mmol/L Chloride 98.9 (98-107) mmol/L Carbon Dioxide 25 (22-30) mmol/L BUN 7 (7-17) mg/dL Creatinine 0.5 L (0.7-1.2) mg/dL Glucose 96 (65-100) mg/dL Calcium 8.3 L (8.4-10.2) mg/dL
[2017-08-06] MEDS ORDERED: K-DUR PO ONE (11:13)
[2017-08-06] MEDS: ZOFRAN IV PRN (12:37)
[2017-08-07] MEDS: D5W/0.45% NACL/KCL 20 MEQ 20 MEQ/1,000 ML BAG IV SCH ×2 (00:07→09:25)
[2017-08-07] MEDS: PROTONIX IV SCH (09:24)
[2017-08-07] MEDS: LOVENOX SUB-Q SCH (09:24)
[2017-08-07] MEDS ORDERED: TYLENOL PO PRN (10:44)
[2017-08-07] MEDS ORDERED: ULTRAM PO PRN (10:44)
[2017-08-07] MEDS ORDERED: MORPHINE IV PRN (10:45)
--- NOTE | 2017-08-07 10:50 | Progress Note ---
Assessment and Plan 57-year-old female status post diagnostic laparoscopy, lysis of adhesions, postop day 4 Plan: 1. start clear liquids, will adv in am if tolerates 2. IVF - decrease to 75cc/hr, 3. await bowel function 4. OOB/ambulate/IS 5. DVT and GI ppx 6. PRN pain control Subjective Date of service: 08/07/17 Narrative: Pt seen and examined. No acute complaints and no overnight events. Continues to pass flatus but no BM. No abd pain. No n/v. NGT removed yesterday. Tolerating sips of clear and ice chips. Objective Vital Signs - 12hr 08/06/17 08/07/17 23:46 07:45 Temperature 98.7 F 99.2 F Pulse Rate 84 83 Respiratory 22 18 Rate Blood Pressure 146/96 104/76 O2 Sat by Pulse 96 96 Oximetry - General physical appearance Narrative Exam: Gen: AAOx3. NAD CV: s1, S2+ Resp: even and unlabored Abd: soft, mildly distended, NT. incisions c/d/i. +bowel sounds. Ext: no c/c/e - Labs 08/04/17 06:15 08/06/17 06:21
[2017-08-08 07:02] LABS: BUN/Creatinine Ratio 6; Blood Urea Nitrogen 3 mg/dL (7-17); Calcium 8.2 mg/dL (8.4-10.2); Hemolysis Index 3
[2017-08-08 08:35] VITALS: BP 123/85
[2017-08-08] MEDS: LOVENOX SUB-Q SCH (10:16)
[2017-08-08] MEDS: PROTONIX IV SCH (10:17)
--- NOTE | 2017-08-08 12:31 | Discharge Summary ---
Providers - Providers Date of Admission: 07/30/17 11:51 Date of discharge: 08/08/17 Attending physician: PERRI ALLEN DO Primary care physician: [facility] Hospitalization Reason for admission: small bowel obstruction Condition: Good Pertinent studies: Ct A/P Obstruction series Procedures: Diagnostic laparoscopy, lysis of adhesions Hospital course: 57 yo F presented to hospital with abd pain, n/v. She was diagnosed with a small bowel obstruction and was treated conservatively with NGT, bowel rest, and IVF. She did not improve despite 4 days of conservative treatment and repeat imaging did not show any progression. She was taken to the OR for laparoscopic lysis of adhesions. Her post operative course was uncomplicated. She started to have bowel function and her diet was slowly advanced. She was tolerating a reg diet, having bowel movements, and flatus. She denies abdominal pain and is ambulating on her own. She was discharged in stable condition. Disposition: DC- TO HOME OR SELFCARE Time spent for discharge: 30 minutes - Discharge Diagnoses (1) SBO (small bowel obstruction) Status: Acute Core Measure Documentation - Palliative Care Palliative Care/ Comfort Measures: Not Applicable - Core Measures Any of the following diagnoses?: none Exam - Physical Exam Narrative exam: Gen: AAOx3. NAD CV: S1, S2+ Resp: even and unlabored Abd: soft, NT, ND. incisions c/d/i Ext: no c/c/e - Constitutional Vitals: Temp Pulse Resp BP Pulse Ox 98.5 F 87 18 123/85 98 08/08/17 07:26 08/08/17 07:26 08/08/17 07:26 08/08/17 07:26 08/08/17 07:26 Plan Activity: no restrictions Diet: other (soft diet - cook all fruits and vegetables before eating. Advance diet slowly after 1 week) Wound: open to air, other (may shower, pat incisions dry.) Additional Instructions: Call surgeon's office if you have fever >100.4, intractable nausea/vomiting/abdominal pain, redness/drainage around incisions Follow up with: PRIMARY CAREMD [Primary Care Provider] - 7 Days PERRI ALLEN DO [Staff Physician] - 10 Days
== END 2017-08-08 14:45 | disposition home or self-care (01) | DRG 336 ==
LOC: ED 05:32 → 3A 11:51
PROVIDERS: ADMIT Surgery; ATTEND Surgery
PROC: 0D9670Z Drainage of Stomach with Drainage Device, Via Natural or Artificial Opening (ICD-10-PCS; 2017-07-30)
PROC: 0DN84ZZ Release Small Intestine, Percutaneous Endoscopic Approach (ICD-10-PCS; principal; 2017-08-03)
PROC: 0DNW4ZZ Release Peritoneum, Percutaneous Endoscopic Approach (ICD-10-PCS; 2017-08-03)
DX: K56.51 Intestinal adhesions [bands], with partial obstruction (principal); E87.0 Hyperosmolality and hypernatremia; E86.0 Dehydration; F17.200 Nicotine dependence, unspecified, uncomplicated; E87.8 Other disorders of electrolyte and fluid balance, not elsewhere classified; I10 Essential (primary) hypertension; Z90.710 Acquired absence of both cervix and uterus; Z79.899 Other long term (current) drug therapy
CPT/HCPCS: 36415; 74022; 74177; 80048; 80053; 81001; 83690; 83735; 84100; 85025; 85027; 96361; 96374; 96375; 96376; A4217; C9113; C9250; J0330; J0360; J0690; J1650; J1885; J2250; J2270; J2405; J2704; J2710; J3010; J3475; J3480; J7030; J7040; J7050; J7120; Q9967

== ENCOUNTER 2018-09-22 09:29 | Outpatient (CLI) | payer BC ==
[2018-09-22 11:10] LABS: Hematocrit 43.1 % (30.3-42.9); Hemoglobin 14.7 gm/dl (10.1-14.3); Mean Corpuscular HGB Conc 34 % (30-34); Mean Corpuscular Volume 95 fl (79-97); Platelet Count 346 K/mm3 (140-440); Red Blood Count 4.54 M/mm3 (3.65-5.03); Red Cell Distribution Width 13.5 % (13.2-15.2)
[2018-09-22 11:19] LABS: Alanine Aminotransferase 12 units/L (7-56); Albumin 4.4 g/dL (3.9-5); BUN/Creatinine Ratio 22; Blood Urea Nitrogen 13 mg/dL (7-17); Calcium 9.5 mg/dL (8.4-10.2); Chol/HDL Ratio 3.58 %; HDL Cholesterol 62 mg/dL (40-59); Hemolysis Index 1; LDL Cholesterol,Direct 158 mg/dL (50-130)
== END 2018-09-22 09:30 | disposition home or self-care (01) ==
LOC: LAB 09:29
PROVIDERS: ATTEND Internal Medicine
DX: Z00.01 Encounter for general adult medical examination with abnormal findings (principal); I10 Essential (primary) hypertension; M05.9 Rheumatoid arthritis with rheumatoid factor, unspecified; K56.609 Unspecified intestinal obstruction, unspecified as to partial versus complete obstruction; R73.09 Other abnormal glucose; Z90.710 Acquired absence of both cervix and uterus
CPT/HCPCS: 36415; 80053; 80061; 82607; 83036; 84443; 85027

== ENCOUNTER 2018-11-01 11:20 | Outpatient (CLI) | payer BC ==
--- NOTE | 2018-11-01 12:01 | Cat Scan Report ---
CT scan of head without IV contrast: History: Paresthesia upper and lower extremity. Findings: Ventricles are normal in size and midline in location. No evidence of acute hemorrhage or ischemia. No extra-axial fluid collection. There is joint there is 1.4 x 3.4 cm hypoechoic area noted in the right occipital region. Normal cerebellum and brainstem. Normal sinuses and mastoid air cells. Impression: Hypoechoic area tricuspid region could be related to old injury or old ischemia. Clinical correlation and if necessary further evaluation may be advised.
== END 2018-11-01 11:21 | disposition home or self-care (01) ==
LOC: CT 11:20
PROVIDERS: ATTEND Internal Medicine
DX: R20.2 Paresthesia of skin (principal); I10 Essential (primary) hypertension; Z90.710 Acquired absence of both cervix and uterus
CPT/HCPCS: 70450

== ENCOUNTER 2019-02-09 11:42 | Outpatient (CLI) | payer BC ==
[2019-02-09 12:35] LABS: Chol/HDL Ratio 3.5 %
== END 2019-02-09 11:43 | disposition home or self-care (01) ==
LOC: LAB 11:42
PROVIDERS: ATTEND Internal Medicine
DX: Z13.220 Encounter for screening for lipoid disorders (principal); R73.9 Hyperglycemia, unspecified; I10 Essential (primary) hypertension; Z90.710 Acquired absence of both cervix and uterus
CPT/HCPCS: 36415; 80061; 83036

== ENCOUNTER 2019-09-13 08:36 | Outpatient (CLI) | payer BC ==
--- NOTE | 2019-09-13 09:43 | Mammography Report ---
DIGITAL SCREENING MAMMOGRAM WITH CAD, 09/13/2019 INDICATION: Routine screening mammography. TECHNIQUE: Digital bilateral 2D mammography was obtained in the craniocaudal and mediolateral obliq ue projections. This examination was interpreted with the benefit of Computer-Aided Detection analysi s. COMPARISON: None available FINDINGS: Breast Density: The breasts are extremely dense, which lowers the sensitivity of mammography. There is no evidence of dominant mass, suspicious calcifications or architectural distortion in eithe r breast. IMPRESSION: Follow up recommendation: Routine yearly BI-RADS Category 1: Negative. A "normal" or negative report should not discourage follow up or biopsy of a clinically significant f inding. A written summary of these findings will be mailed to the patient. The patient will be entered into a mammography reporting system which will generate a reminder letter for the patient's next appointmen t at the appropriate interval. The [employer] recommends yearly mammograms starting at age 40 and continuing as l leonarda as a woman is in good health. Breast MRI is recommended for women with an approximate 20-25% or greater lifetime risk of breast cancer, including women with a strong family history of breast or ova adrian cancer or who have been treated for Hodgkin's disease. Signer Name: Yoanna Cardoso MD Signed: 09/13/2019 9:39 AM Workstation Name: [id number]
== END 2019-09-13 08:37 | disposition home or self-care (01) ==
LOC: MAMMO 08:36
PROVIDERS: ATTEND Internal Medicine
DX: Z12.31 Encounter for screening mammogram for malignant neoplasm of breast (principal)
CPT/HCPCS: 77067

== ENCOUNTER 2020-09-15 14:05 | Outpatient (CLI) | payer BC ==
--- NOTE | 2020-09-15 15:59 | Mammography Report ---
DIGITAL SCREENING MAMMOGRAM WITH CAD, 09/15/2020 CLINICAL INFORMATION / INDICATION: Routine screening mammography. TECHNIQUE: Digital bilateral 2D mammography was obtained in the craniocaudal and mediolateral obliqu e projections. This examination was interpreted with the benefit of Computer-Aided Detection analysis . COMPARISON: Prior mammogram 09/13/2019 FINDINGS: Breast Density: The breasts are heterogeneously dense, which may obscure small masses. No dominant mass, suspicious calcifications, or architectural distortion in either breast. There has been no significant change compared with the prior examination. IMPRESSION: No mammographic evidence of malignancy. Follow up recommendation: Routine yearly BI-RADS Category 1: Negative. A "normal" or negative report should not discourage follow up or biopsy of a clinically significant f inding. A written summary of these findings will be mailed to the patient. The patient will be entered into a mammography reporting system which will generate a reminder letter for the patient's next appointmen t at the appropriate interval. The [employer] recommends yearly mammograms starting at age 40 and continuing as l leonarda as a woman is in good health. Breast MRI is recommended for women with an approximate 20-25% or greater lifetime risk of breast cancer, including women with a strong family history of breast or ova adrian cancer or who have been treated for Hodgkin's disease. Signer Name: Yoanna Cardoso MD Signed: 09/15/2020 3:54 PM Workstation Name: [email or web address]
== END 2020-09-15 14:06 | disposition home or self-care (01) ==
LOC: MAMMO 14:05
PROVIDERS: ATTEND Internal Medicine
DX: Z12.31 Encounter for screening mammogram for malignant neoplasm of breast (principal)
CPT/HCPCS: 77067

== ENCOUNTER 2021-09-17 14:24 | Outpatient (CLI) | payer BC ==
--- NOTE | 2021-09-18 17:44 | Mammography Report ---
DIGITAL SCREENING MAMMOGRAM WITH CAD, 09/17/2021 CLINICAL INFORMATION / INDICATION: Routine screening mammography. Z12.31 TECHNIQUE: Digital bilateral 2D mammography was obtained in the craniocaudal and mediolateral obliqu e projections. This examination was interpreted with the benefit of Computer-Aided Detection analysis . COMPARISON: 09/13/2019 and 09/15/2020. FINDINGS: Breast Density: The breasts are heterogeneously dense, which may obscure small masses. No dominant mass, suspicious calcifications, or architectural distortion in either breast. IMPRESSION: No mammographic evidence of malignancy. Follow up recommendation: Routine yearly BI-RADS Category 1: NEGATIVE A "normal" or negative report should not discourage follow up or biopsy of a clinically significant f inding. A written summary of these findings will be mailed to the patient. The patient will be entered into a mammography reporting system which will generate a reminder letter for the patient's next appointmen t at the appropriate interval. The [employer] recommends yearly mammograms starting at age 40 and continuing as l leonarda as a woman is in good health. Breast MRI is recommended for women with an approximate 20-25% or greater lifetime risk of breast cancer, including women with a strong family history of breast or ova adrian cancer or who have been treated for Hodgkin's disease. Signer Name: Rl Warner MD Signed: 09/18/2021 5:39 PM Workstation Name: [id number]
== END 2021-09-17 14:25 | disposition home or self-care (01) ==
LOC: MAMMO 14:24
PROVIDERS: ATTEND Internal Medicine
DX: Z12.31 Encounter for screening mammogram for malignant neoplasm of breast (principal)
CPT/HCPCS: 77067

== ENCOUNTER 2021-12-03 10:02 | Outpatient (CLI) | payer BC ==
[2021-12-03 12:22] LABS: Basophils # (Auto) 0.1 K/mm3 (0.0-0.1); Basophils % (Auto) 0.5 % (0.0-1.8); Eosinophils # (Auto) 0.1 K/mm3 (0.0-0.4); Eosinophils % (Auto) 0.6 % (0.0-4.3); Hematocrit 41.6 % (30.3-42.9); Hemoglobin 13.9 gm/dl (10.1-14.3); Lymphocytes # (Auto) 3.1 K/mm3 (1.2-5.4); Lymphocytes % (Auto) 30.5 % (13.4-35.0); Mean Corpuscular HGB Conc 33 % (30-34); Mean Corpuscular Volume 96 fl (79-97); Monocytes # (Auto) 0.6 K/mm3 (0.0-0.8); Monocytes % (Auto) 6.1 % (0.0-7.3); Platelet Count 314 K/mm3 (140-440); Red Blood Count 4.35 M/mm3 (3.65-5.03)
[2021-12-03 13:19] LABS: Alanine Aminotransferase 12 units/L (7-56); Albumin 4.7 g/dL (3.9-5); Blood Urea Nitrogen 17 mg/dL (7-17); Calcium 9.5 mg/dL (8.4-10.2); Chol/HDL Ratio 3.16 %; HDL Cholesterol 67 mg/dL (40-59); Hemolysis Index 12; LDL Cholesterol,Direct 130 mg/dL (50-130)
[2021-12-03 13:22] LABS: BUN/Creatinine Ratio 24
[2021-12-06 13:57] LABS: Vitamin D, 25-OH, D2 24 ng/mL
== END 2021-12-03 10:03 | disposition home or self-care (01) ==
LOC: LABHHL 10:02
PROVIDERS: ATTEND Internal Medicine
DX: Z00.00 Encounter for general adult medical examination without abnormal findings (principal); I10 Essential (primary) hypertension; R73.03 Prediabetes; E55.9 Vitamin D deficiency, unspecified; E78.5 Hyperlipidemia, unspecified; R63.4 Abnormal weight loss
CPT/HCPCS: 36415; 80053; 80061; 82306; 83036; 84443; 85025

== ENCOUNTER 2021-12-31 06:52 | Day surgery (SDC) | payer BC ==
[~2021-12-31 06:52] MED LIST: ceFAZolin/STERILE WATER 2 GM/20 ML SYRINGE IV NR
[2021-12-31] MEDS ORDERED: LACTATED RINGERS 1,000 ML ONE (07:57)
--- NOTE | 2021-12-31 08:05 | Anesthesia Consultation ---
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
--- NOTE | 2021-12-31 08:05 | Anesthesia Day of Surgery ---
Anesthesia Day of Surgery - Day of Surgery Patient Examined: Yes Patient H&P Reviewed: Yes Patient is NPO: Yes
[2021-12-31] MEDS ORDERED: LIDOCAINE (1%) 10 MG/1 ML VIAL 20 ML MDV ONE (08:12)
[2021-12-31] MEDS ORDERED: BUPIVACAINE/PF (0.5%) 5 MG/1 ML 30 ML VIAL INFILTRATI ONE ×2 (08:13→09:08)
[2021-12-31] MEDS ORDERED: ONDANSETRON 4 MG/2 ML INJ ONE (08:15)
[2021-12-31] MEDS ORDERED: LIDOCAINE MPF (2%) 20 MG/1 ML VIAL 5 ML ONE (08:15)
[2021-12-31] MEDS ORDERED: HYDROmorphone 1 MG/1 ML INJ ONE (08:16)
[2021-12-31] MEDS ORDERED: propofoL 200 MG/20 ML VIAL IV ONE ×2 (08:16)
[2021-12-31] MEDS ORDERED: KETAMINE/STERILE WATER 50 MG/ML SYRINGE ONE (08:17)
[2021-12-31] MEDS ORDERED: MIDAZOLAM 2 MG/2 ML INJ ONE (08:36)
[2021-12-31] MEDS ORDERED: LACTATED RINGERS 1,000 ML IV SCH (09:00)
[2021-12-31] MEDS ORDERED: LIDOCAINE 2%/EPINEPHRINE 1:100,000 VIAL (20 ML) INFILTRATI ONE (09:08)
[2021-12-31] MEDS ORDERED: SODIUM CHLORIDE 0.9% IRR 1,500 ML BOTTLE IR ONE (09:09)
--- NOTE | 2021-12-31 09:55 | Short Stay Summary ---
Short Stay Documentation Date of service: 12/31/21 - History H&P: obtained from office - Allergies and Medications Current Medications: Allergies No Known Allergies Allergy (Verified 12/23/21 11:52) Home Medications Medication Instructions Recorded Confirmed Last Taken Type Adalimumab [Humira Pen] 1 each SUB-Q Q2W 07/30/17 12/31/21 12/25/21 09:00 History Olmesartan (Nf) [Benicar (Nf)] 40 mg PO QDAY 12/23/21 12/31/21 12/29/21 09:00 History Active Medications Cefazolin Sodium (Cefazolin/Sterile Water 2 Gm/20 Ml Syringe) 2 gm IV PREOP NR Stop: 12/31/21 23:59 Lactated Ringer's (Lactated Ringers) 1,000 mls @ 100 mls/hr IV DIRECT BRADY Last Admin: 12/31/21 08:00 Dose: 100 mls/hr - Brief post op/procedure progress note Date of procedure: 12/31/21 Pre-op diagnosis: Cystic mass of the neck posteriorly and lipoma of the left flank Post-op diagnosis: same Procedure: Excision of cystic lesion of the left neck posteriorly 2 cm in size and excision of lipoma of the left flank 5 x 6 cm in size Anesthesia: GETA Findings: Lesion of the neck discovered to be an inclusion cyst. A deep 5 x 6 cm lipoma is also found in the left flank. Surgeon: LAURA HADLEY Estimated blood loss: minimal Pathology: list (2 cm cyst of the neck posteriorly. 5 x 6 cm lipoma of the left flank.) Specimen disposition: to lab Condition: stable - Disposition Condition at discharge: Good Disposition: 01 HOME / SELF CARE / HOMELESS Short Stay Discharge Plan Activity: no restrictions Weight Bearing Status: Full Weight Bearing Diet: regular Wound: open to air Follow up with: KATHRYN MEREDITH MD [Primary Care Provider] - 7 Days LAURA HADLEY MD [Staff Physician] - 7 Days Prescriptions: HYDROcodone/APAP 5-325 [Bucoda 5/325] 1 each PO Q6HR PRN 7 Days #14 tablet PRN Reason: Pain
--- NOTE | 2021-12-31 10:00 | Operative Report ---
Operative Report Operative Report: Date: 12/31/2021 Preop diagnosis: Cystic lesion of the posterior neck and lipoma of the left flank Postop diagnosis: Same Procedure: Excision of 2 cm cystic lesion of the posterior neck and 5 x 6 cm lipoma of the left flank Surgeon: Dr. Colon Accounts Receivable Administrator: Dr. Armando Anesthesia: IV sedation MAC and local Estimated blood loss: Minimal Specimen: 2 cm cystic lesion of the posterior neck and 5 x 6 cm lipoma of the left flank Findings: This patient is noted to have a 2 cm cystic lesion of the posterior ne ck and 5 x 6 cm lipoma of the left flank . The patient is taken to the OR and under general endotracheal anesthesia timeouts are completed consents on the chart. The the patient received 2 g of Ancef. The patient is placed in a [id number] lateral cubitus position on a beanbag all pressure points are padded. The area was prepped with ChloraPrep and draped in a sterile fashion.The area is infiltrated with 1% lidocaine and half percent Marcaine with epi. A linear incision is made over the palpable cyst in the posterior neck. Electrocautery was used to dissect the lesion free of the surrounding tissue. Hemostasis is good and is maintained with electrocautery. The wound is irrigated with saline.Wound is closed in layers with 2 and 3-0 Vicryl. Skin is closed with Dermabond and 4-0 Monocryl. Linear incision is made over the lipoma site with a #10 scalpel. Electrocautery was used to dissect the lipoma completely from the area. Hemostasis obtained with electrocautery. Wound is irrigated with saline. Wound is closed in layers with 2 and 3-0 Vicryl. Skin is closed with Dermabond and 4-0 Monocryl.
[2021-12-31 11:09] VITALS: BP 132/76
--- NOTE | 2021-12-31 13:21 | Post Anesthesia Evaluation ---
- Post Anesthesia Evaluation Patient Participated: Yes Airway Patent: Yes Stable Respiratory Function: Yes Nausea/Vomiting: No Temp > 96.8F: Yes Pain Manageable: Yes Adequeate Hydration: Yes Anesthesia Complications: No
== END 2021-12-31 11:00 | disposition home or self-care (01) ==
LOC: OR 06:52
PROVIDERS: ATTEND Surgery
DX: R22.1 Localized swelling, mass and lump, neck (principal); R22.2 Localized swelling, mass and lump, trunk; D17.0 Benign lipomatous neoplasm of skin and subcutaneous tissue of head, face and neck; D17.1 Benign lipomatous neoplasm of skin and subcutaneous tissue of trunk; I10 Essential (primary) hypertension; D64.9 Anemia, unspecified; F17.210 Nicotine dependence, cigarettes, uncomplicated; Z90.710 Acquired absence of both cervix and uterus; Z98.890 Other specified postprocedural states; M06.9 Rheumatoid arthritis, unspecified; Z79.899 Other long term (current) drug therapy; Z72.89 Other problems related to lifestyle
CPT/HCPCS: 21555; 21931; 88304; J0690; J1170; J2250; J2405; J2704; J3490; J7120

== ENCOUNTER 2022-01-15 07:24 | Outpatient (CLI) | payer BC ==
--- NOTE | 2022-01-15 10:24 | Magnetic Resonance Report ---
MRI LEFT HIP WITHOUT CONTRAST INDICATION / CLINICAL INFORMATION: M25.552 PAIN IN LEFT HIP. TECHNIQUE: Multiplanar, multisequence MR images were obtained. No contrast used. COMPARISON: None available. FINDINGS: ACETABULAR LABRUM: There is mild degenerative tearing of the superior labrum. This extends into the a nterior superior labrum and there appears to be a tiny para labral cyst adjacent to the anterior labr um on coronal small [id number] image 5 and axial image 14. ARTICULAR CARTILAGE: Mild cartilage thinning. LIGAMENTUM TERES: No significant abnormality. JOINT SPACE AND CAPSULE: No effusion. There is mild joint space narrowing. GLUTEAL MUSCLES/TENDONS: No significant abnormality. ILIOPSOAS MUSCLES/TENDON: No significant abnormality. PROXIMAL HAMSTRING TENDONS: There is partial tear at the origin of the conjoined semitendinosis/bicep s tendons at the ischial tuberosity (axial image 19. This appears chronic. GROIN MUSCLES/TENDONS: No significant abnormality. SOFT TISSUES: No significant abnormality. BONES: No significant bone marrow edema. No fracture. No osseous lesion. SACROILIAC JOINT(S): No significant abnormality. ADDITIONAL FINDINGS: None. IMPRESSION: 1. Mild osteoarthrosis of the left hip with degenerative tear and probable tiny paralabral cyst adjac ent to the anterior labrum. 2. Partial tear at the origin of the conjoined semitendinosus/biceps femoris tendons at the ischial t uberosity. This does not appear acute. Signer Name: Boy Bullard MD Signed: 01/15/2022 10:19 AM Workstation Name: [id number]
== END 2022-01-15 07:25 | disposition home or self-care (01) ==
LOC: MRI 07:24
PROVIDERS: ATTEND Orthopaedic Surgery
DX: S73.102A Unspecified sprain of left hip, initial encounter (principal); M16.12 Unilateral primary osteoarthritis, left hip; X58.XXXA Exposure to other specified factors, initial encounter; Y93.89 Activity, other specified; Y92.89 Other specified places as the place of occurrence of the external cause; Y99.8 Other external cause status
CPT/HCPCS: 73721